=== PATIENT | female | born 1955 | race Two or more races ===

== ENCOUNTER 2017-10-07 19:50 | Emergency (ER) | payer SELFPAY ==
[2017-10-07 19:52] VITALS: BP 157/89; PULSE 95; RESP 16; TEMP 99.3; O2SAT 97
--- NOTE | 2017-10-07 20:47 | C.PDOC ---
History Of Present Illness Patient complains of 3 day history of not feeling well and reports fever, generalized bodyaches, nasal congestion, sore throat and cough non-productive. She has been taking Motrin without relief. Denies headache, chest pain, SOB, abdominal pain, vomiting, diarrhea, rash, recent travel or sick contacts. Time Seen by Provider: 10/07/17 20:29 Chief Complaint (Nursing): Cough, Cold, Congestion History Per: Patient History/Exam Limitations: no limitations Onset/Duration Of Symptoms: Days Location Of Pain: Throat, Diffuse Myalgias Sick Contacts (Context): None Associated Symptoms: Fever, Sore Throat, Cough, Myalgias, Nasal Congestion. denies: Sputum, Nausea, Vomiting, Diarrhea, Other (Headache, chest pain, SOB, abdominal pain, rash) Ear Symptoms: Bilateral: None Recent travel outside of the [place]: No Past Medical History Reviewed: Historical Data, Nursing Documentation, Vital Signs Vital Signs: Last Vital Signs Temp 99.3 F 10/07/17 19:50 Pulse 95 H 10/07/17 19:50 Resp 16 10/07/17 19:50 BP 157/89 H 10/07/17 19:50 Pulse Ox 97 10/07/17 21:14 - Medical History PMH: Diabetes Other PMH: Tuberculosis treated 2015 Surgical History: Cholecystectomy, Family History: States: Unknown Family Hx - Social History Hx Alcohol Use: No Hx Substance Use: No Review Of Systems Constitutional: Positive for: Fever, Other (Generalized bodyaches) ENT: Positive for: Nose Congestion, Throat Pain Cardiovascular: Negative for: Chest Pain Respiratory: Positive for: Cough. Negative for: Shortness of Breath, Sputum Gastrointestinal: Negative for: Nausea, Vomiting, Abdominal Pain, Diarrhea Skin: Negative for: Rash Neurological: Negative for: Headache Physical Exam - Physical Exam Appears: Non-toxic Skin: Normal Color, Warm, Dry Head: Atraumatic, Normacephalic Eye(s): bilateral: Normal Inspection, PERRL, EOMI Ear(s): Bilateral: Normal Nose: Other (Congestion) Oral Mucosa: Moist Throat: No Exudate, No Drooling, No Mass, Other (mild pharyngeal erythema) Neck: Normal, No Midline Cervical Tenderness, No Paracervical Tenderness, Supple Chest: Symmetrical, No Tenderness Cardiovascular: Rhythm Regular, No Murmur Respiratory: Normal Breath Sounds, No Accessory Muscle Use, No Rales, No Rhonchi , No Stridor, No Wheezing Gastrointestinal/Abdominal: Soft, No Tenderness Back: No CVA Tenderness Extremity: Bilateral: Atraumatic, Normal Color And Temperature, Normal ROM Neurological/Psych: Oriented x3, Normal Speech Gait: Steady ED Course And Treatment O2 Sat by Pulse Oximetry: 97 (Room air) Pulse Ox Interpretation: Normal - Radiology CXR: Interpreted by Me, Viewed By Me CXR Interpretation: Yes: No Acute Disease. No: Infiltrates Medical Decision Making Medical Decision Making: Impression: fever, cough, congestion sore throat; likely viral Plan: * CXR * Strep test * Flu test Progress: Results reviewed and CXR shows no infiltrate, pleural effusion or acute disease. Rapid strep and Flu test negativve. Discussed results with patient. Patient remained afebrile alert and oriented with stable vital signs during ER evaluation. She has clear lungs bilaterally with good air entry and [id number] is adequate. Symptoms are likely viral and supportive treatment is recommended including antipyretics/analgesics, cough medicine, lozenges and decongestant. Patient given follow up instructions. Instructed to return to ER if symptoms worsen or new symptoms arise. Disposition Counseled Patient/Family Regarding: Studies Performed, Diagnosis, Need For Followup, Rx Given - Disposition Referrals: [facility] [Outside] [facility] [Outside] [facility] [employer] [Outside] Disposition: HOME/ ROUTINE Disposition Time: 20:48 Condition: STABLE Additional Instructions: You have viral upper respiratory infection. Take Tylenol or Motrin alternating every 4-6 hours for Fever 100.4F or higher. Rest and drink plenty of fluids. May use cool mist humidifier or vaporizer in room. Try taking over the counter antihistamine (Claritin, Heidi, Zyrtec), Decongestant or Cough medicine ( Mucinex) as needed every 6-8 hours. Follow up with your primary medical doctor or clinic if not improving after 5 days for further evaluation. Usted tiene lucrecia infeccin viral de las vas respiratorias superiores. [place] Tylenol o Motrin alternando cada 4-6 horas para Fiebre 100.4F o superior. Descansa y jude muchos lquidos. Puede usar humidificador de vapor fro o vaporizador en la habitacin. Intente rainer el antihistamnico contador ( Claritin, Heidi, Zyrtec), descongestionante o medicamento para la tos (Mucinex ) segn sea necesario cada 6-8 horas. Kimberly un seguimiento con reddy mdico primario o clnica si no mejora despus de 5 guajardo para lucrecia evaluacin adicional. Prescriptions: Promethazine DM [Phenergan DM Syrup] 10 ml PO Q8 PRN #300 ml PRN Reason: Cough Instructions: Upper Respiratory Infection (ED) Print Language: TURKISH - POA Present On Arrival: None - Clinical Impression Clinical Impression: Upper respiratory infection - PA / CURRICULUM MANAGER / Resident Statement MD/DO has reviewed & agrees with the documentation as recorded. - Scribe Statement The provider has reviewed the documentation as recorded by the Scribe Javier Crouch All medical record entries made by the Scribe were at my direction and personally dictated by me. I have reviewed the chart and agree that the record accurately reflects my personal performance of the history, physical exam, medical decision making, and the department course for this patient. I have also personally directed, reviewed, and agree with the discharge instructions and disposition.
--- NOTE | 2017-10-08 10:14 | RAD ---
Date of service: 10/07/2017 HISTORY: Pneumonia. COMPARISON: No prior. TECHNIQUE: Chest PA and lateral FINDINGS: LUNGS: Diffuse increased interstitial lung markings. Biapical pleural thickening. Upper lobe granulomatous changes. Small nodular density at the lateral aspect of the right lung base may represent small nodule versus granuloma versus vessel on end. PLEURA: No significant pleural effusion identified. No pneumothorax apparent. CARDIOVASCULAR: Tortuous ectatic aorta. OSSEOUS STRUCTURES: Degenerative changes in the spine. VISUALIZED UPPER ABDOMEN: Surgical clips in the upper abdomen. OTHER FINDINGS: None. IMPRESSION: Diffuse increased interstitial lung markings. Biapical pleural thickening. Upper lobe granulomatous changes. Small nodular density at the lateral aspect of the right lung base may represent small nodule versus granuloma versus vessel on end.
== END 2017-10-07 21:07 | disposition home or self-care (01) ==
LOC: C.ER 19:50
DX: J06.9 Acute upper respiratory infection, unspecified (principal); E11.9 Type 2 diabetes mellitus without complications